=== PATIENT | male | born 1975 | race African-American/Black ===

== ENCOUNTER 2022-10-17 01:51 | Emergency (ER) | payer OTHER, SELFPAY ==
[2022-10-17 01:51] VITALS: BP 140/91; PULSE 68; RESP 14; TEMP 36.6; O2SAT 96; BMI 29.0
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
[2022-10-17 02:57] VITALS: BP 141/91
== END 2022-10-17 02:59 | disposition home or self-care (01) ==
LOC: ED 02:21
PROVIDERS: Emergency Provider Emergency Medicine; PCP Family Medicine; Visit Provider Emergency Medicine
DX: T23.232A Burn of second degree of multiple left fingers (nail), not including thumb, initial encounter (principal); T31.0 Burns involving less than 10% of body surface; T23.222A Burn of second degree of single left finger (nail) except thumb, initial encounter; X03.8XXA Other exposure to controlled fire, not in building or structure, initial encounter; W01.198A Fall on same level from slipping, tripping and stumbling with subsequent striking against other object, initial encounter
CPT/HCPCS: 99282